=== PATIENT | female | born 1980 | race Caucasian/White ===

== ENCOUNTER 2018-03-11 21:23 | Emergency (ER) | payer OTHER, SELFPAY ==
[2018-03-11 21:47] VITALS: BP 109/77; PULSE 84; RESP 18; TEMP 36.6; O2SAT 96
--- NOTE | 2018-03-11 22:08 | DI.REPORT_ITS ---
SYMPTOM/DIAGNOSIS: RIGHT LATERAL HIP PAIN AFTER DANCING PELVIS AND RIGHT HIP: No fracture or dislocation is seen. The S-I joints, and pubic symphysis appear intact. IMPRESSION: Negative pelvis and right hip.
--- NOTE | 2018-03-11 22:09 | ED.GENADUL ---
Disposition Clinical Impression: Musculoskeletal strain Disposition: HOME Condition: Good Instructions: Ibuprofen (By mouth), Crutch Instructions (ED) Additional Instructions: X-rays are negative and this pain is likely musculoskeletal in nature. It may get a little worse over the weekend and then subsequently should get better over the next few days. I would try ice over the weekend but if that does not seem to help certainly use heat. Ibuprofen as directed. Weight-bear as tolerated and use crutches as necessary. Follow-up with primary care next week. Return to ED for any numbness, weakness, significantly worse pain. Prescriptions: Ibuprofen 600 mg PO TID #15 tablet Referrals: James Mae [Primary Care Provider] - Medical Decision Making - Medical Decision Making Patient presents today with chief complaint of right hip pain after injury while dancing. Did not fall. Did not strike the hip. Is concerned she may have dislocated. However, this is not consistent with exam findings. No shortening or leg length discrepancy. No rotational deformity. Pain is primarily over the greater trochanter laterally hip. No pain is elicited with palpation anteriorly. Range of motion was not assessed secondary to her level of discomfort. Will give the patient ibuprofen, Tylenol, and obtain a UPT and x-rays of the patient's right hip. Discussed this plan with the patient who is in agreement. At the end of my shift, patient as he has not yet gone for imaging. UPT is also still pending, patient was able to stand with assistance to use the restroom. Care was transitioned to Dr. Patricio. Please see his documentation for further information. History of Present Illness - General Chief complaint: Orthopedic Stated complaint: HIP DISLOCATED Time Seen by Provider: 03/11/18 21:54 Source: patient, family, RN notes reviewed Mode of arrival: wheelchair Limitations: no limitations - History of Present Illness Initial comments: Patient is a 37-year-old female presenting today with chief complaint of right hip pain. She reports that prior to arrival she was dancing at a local fair when she felt a sudden pop and had severe discomfort radiating down the lateral aspect of the right hip. Endorses some tingling in the right lower extremity. She reports that she had to be assisted accident for by her mother. He has not been able to bear weight fully on the right lower extremity since the time of initial incident. Denies previous surgery to hip. Denies previous trauma to the hip. States the pain that initiates laterally can radiate around towards the groin anteriorly. Patient is currently being treated for endometriosis and does not have regular menses. Denies abdominal pain. No nausea vomiting. Denies any incontinence. - Related Data Citalopram Hydrobromide [Celexa] 40 mg PO DAILY tab-cap 10/18/12 Tranxene 7.5 mg PO BID 10/18/12 Control Pills 1 tab PO DAILY 11/13/17 Ibuprofen 600 mg PO TID #15 tablet 03/12/18 Allergies Allergy/AdvReac Type Severity Reaction Status Date / Time No Known Allergies Allergy Unverified 12/23/17 04:48 Review of Systems Constitutional: no symptoms reported. denies: chills, fever Respiratory: no symptoms reported Gastrointestinal: as per HPI. 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 Absent: respiratory distress - Cardiovascular Cardiovascular Exam: Present: regular rate, normal rhythm, normal heart sounds - GI/Abdominal GI/Abdominal exam: Present: soft, normal bowel sounds. Absent: distended, tenderness, guarding - Rectal Rectal exam: Present: deferred - Extremities Exam Extremities exam: Present: tenderness, normal capillary refill. Absent: normal inspection (Exam the patient's right lower extremity significant for pain with palpation over the greater trochanter laterally. Pelvis is stable. No pain to palpation of the anterior posterior. No saddle paresthesias. No leg length discrepancy. Normal rotational position. Brisk capillary refill and good distal pulses), full ROM (unable to assess secondary to pain), joint swelling - Back Exam Back exam: Absent: tenderness - Neurological Exam Neurological exam: Present: alert, abnormal gait (patient brought in via wheelchair secondary to pain with ambulation). Absent: motor sensory deficit - Psychiatric Psychiatric exam: Present: normal affect, normal mood - Skin Skin exam: Present: warm, dry, intact, normal color Course Vital Signs - 24 hr 03/11/18 21:47 Temperature 36.6 C Pulse 84 Respiratory 18 Rate Blood Pressure 109/77 Pulse Oximetry 96
--- NOTE | 2018-03-12 00:08 | DI.VRAD_ITS ---
EXAM: XR Right Hip With Pelvis When Performed, 2 or 3 Views CLINICAL HISTORY: 37 years old, female; Pain; Hip pain; Right hip; Patient HX: Right lateral hip pain after dancing TECHNIQUE: Two or three views of the right hip, with pelvis when performed. COMPARISON: CT - ABD PELVIS WITH CONTRAST 2017-12-23 05:55 FINDINGS: Bones/joints: Bone mineralization is age-appropriate. There is no evidence of fracture. No evidence of dislocation. The joint spaces are adequately preserved; no significant degenerative narrowing and no bony erosion seen. Soft tissues: No radiopaque foreign body present. There is no significant soft tissue swelling present. IMPRESSION: No acute osseous abnormality. Dictated and Authenticated by: Gokul Christopher MD. Ordering:ERUM MAYES MD
--- NOTE | 2018-03-12 00:29 | ED.FU ---
Disposition Clinical Impression: Musculoskeletal strain Disposition: HOME Condition: Good Instructions: Ibuprofen (By mouth), Crutch Instructions (ED) Additional Instructions: X-rays are negative and this pain is likely musculoskeletal in nature. It may get a little worse over the weekend and then subsequently should get better over the next few days. I would try ice over the weekend but if that does not seem to help certainly use heat. Ibuprofen as directed. Weight-bear as tolerated and use crutches as necessary. Follow-up with primary care next week. Return to ED for any numbness, weakness, significantly worse pain. Prescriptions: Ibuprofen 600 mg PO TID #15 tablet Referrals: James Mae [Primary Care Provider] - Medical Decision Making - Radiology Data Radiology results: report reviewed, image reviewed - Medical Decision Making X-rays were negative for any bony abnormality. Hip joint was in place. On reevaluation pain is mostly in the right lateral hip and pelvis area. Almost directly over the anterior superior iliac spine on my evaluation. This is likely musculoskeletal in nature. She is still uncomfortable and having difficulty walking and wanted crutches which we provided. We will continue her on nonsteroidals. We will have her follow-up with primary care next week if not doing better. Return to ED if worse. Care Signed Out By:: VICKI Anthony - Vital Signs Recent Vitals - 8H: Vital Signs - 8 hr 03/11/18 21:47 Temperature 97.9 F Pulse 84 Respiratory 18 Rate Blood Pressure 109/77 Pulse Oximetry 96 - Continuation of Care Continuation of Care Plan: Patient signed over to me pending x-ray of her right hip and pelvis. She had presented with complaints of severe right hip pain and difficulty ambulating after dancing at the [employer] this evening. She was originally seen by physician doctor assistant Paul. She did receive Tylenol and Motrin. X-rays were pending.
--- NOTE | 2018-03-12 00:32 | ED.FU_ITS ---
Disposition Clinical Impression: Musculoskeletal strain Disposition: HOME Condition: Good Instructions: Ibuprofen (By mouth), Crutch Instructions (ED) Additional Instructions: X-rays are negative and this pain is likely musculoskeletal in nature. It may get a little worse over the weekend and then subsequently should get better over the next few days. I would try ice over the weekend but if that does not seem to help certainly use heat. Ibuprofen as directed. Weight-bear as tolerated and use crutches as necessary. Follow-up with primary care next week. Return to ED for any numbness, weakness, significantly worse pain. Prescriptions: Ibuprofen 600 mg PO TID #15 tablet Referrals: James Mae [Primary Care Provider] - Medical Decision Making - Radiology Data Radiology results: report reviewed, image reviewed - Medical Decision Making X-rays were negative for any bony abnormality. Hip joint was in place. On reevaluation pain is mostly in the right lateral hip and pelvis area. Almost directly over the anterior superior iliac spine on my evaluation. This is likely musculoskeletal in nature. She is still uncomfortable and having difficulty walking and wanted crutches which we provided. We will continue her on nonsteroidals. We will have her follow-up with primary care next week if not doing better. Return to ED if worse. Care Signed Out By:: VICKI Anthony - Vital Signs Recent Vitals - 8H: Vital Signs - 8 hr 03/11/18 21:47 Temperature 97.9 F Pulse 84 Respiratory 18 Rate Blood Pressure 109/77 Pulse Oximetry 96 - Continuation of Care Continuation of Care Plan: Patient signed over to me pending x-ray of her right hip and pelvis. She had presented with complaints of severe right hip pain and difficulty ambulating after dancing at the [employer] this evening. She was originally seen by physician operations assistant Paul. She did receive Tylenol and Motrin. X-rays were pending.
[2018-03-12 00:40] VITALS: BP 105/75; PULSE 80; RESP 18; O2SAT 96
== END 2018-03-12 00:40 | disposition home or self-care (01) ==
PROVIDERS: Emergency Provider Emergency Medicine; PCP Internal Medicine
DX: S76.011A Strain of muscle, fascia and tendon of right hip, initial encounter (principal); X50.1XXA Overexertion from prolonged static or awkward postures, initial encounter; Y93.41 Activity, dancing
CPT/HCPCS: 81025; 99284; 73502; E0114

== ENCOUNTER 2018-03-20 14:47 | Outpatient (RCR) | payer OTHER, SELFPAY ==
--- NOTE | 2018-03-20 15:00 | IE_ITS ---
Date: March 20, 2018 Referring: James Mae MD M.D. Diagnosis: Hip and groin injury P.T. 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 She was at the [employer] last weekend. She was carrying her niece around the fair on her R hip. Then she put her niece down and started dancing. Half way through the song she felt something pop right over her R hip on the outside. She was instantly sore, had to sit down. She actually had to call her . She was taken to the ED. X-rays were (-) . She was put on crutches for 2 days and became progressively better. Initially the pain was entire R side of the hip girdle, extending through the groin, into the more outside edge of the hip. Now it is located more to the back side area above the R side back pocket. Pain Ratin/10 Prior Level of Function: Unrestricted Current Level of Function: Only work 2 hours each day and walking much less, about 1/4 mile-still painful. Previous Treatment: None Social: Lives in [place] with her and child Comorbidities: Nothing significant worthy of note. Falls in the last year: __X__ No ____Yes - How many? ____ - (if over 2, balance SM needs to be completed) Reported hospitalizations in the last year - __X__ No ____ Yes - Dates of admission/reason: Medications: Celexa, Alprazolam, Imitrex, Chlorazepate Quality of Life: ____ Excellent __X__ Good ____ Fair ____ Poor Standardized Measures: LEFS score: 65% OBJECTIVE: Posture: In standing-patient demonstrates a slight weight bear bias onto the L LE. Observation: (behavior, atrophy, skin color, etc.) Gait: Minimally antalgic with reduction of stance time through the R and impairment in her bernadette and limited amount of hip extension to the R. Palpation: She is tender to palpation to the quadratus lumborum on the R side as well as over the lower portion of the external oblique, the lateral margins of the inguinal ligament also mildly tender and SFMA top tier assessment was completed, dysfunctional non-painful patterns at multisegmental flexion, multisegmental extension, multisegmental rotation, arms down deep squat. ROM: Multisegmental trunk flexion limited to 75% of available motion with mild pain in the posterolateral area of the hip. Multisegmental extension limited to 25% of available motion mostly coming from the lumbar spine, limited hip extension. Hip flexion 120 degrees bilaterally, no pain. Hip IR 35 degrees bilaterally, no pain, hip ER 45 degrees R, mild pain to the quadratus lumborum and L 45 degrees of motion with ER no pain. Hip abduction 45 degrees of motion no pain. Trunk sidebending towards the L mildly painful on the R with 75% of normal motion. On R trunk sidebend WNL and no evidence of pain. Strength: Core strength 4/5, as tested with 90/90 hold position. Patient does receive a little intrinsic feedback and pain towards the R sciatic external oblique and quadratus lumborum when in unweighted position with a mild increase in anterior tilting of the pelvis. Hip flexion 4+/5 bilaterally, no pain, quads 5/5, hamstrings 5/5, dorsiflexion 5 /5, plantar flexion 5/5, glut med 4/5 bilaterally no pain. Neuro: Intact to light touch in sensation through LE dermatomes. Motor control appears intact through associated myotomes. Patient demonstrates appropriate proprioception and kinesthetic awareness. Special Tests: Hip scour, hip grind testing (-), modified Zabrina's testing mildly (+) on R, (-) L. SLR (-) Treatment: Today included the initial evaluation, assessment of functional abilities as well as training in a formal exercise program. The patient demonstrated verbal acknowledgement and technique demonstration. IE: [id number] Direct treatment time: 60 mins Total treatment time: 60 mins ASSESSMENT: Patient is a 37-year-old female with good physical health, referred for PT services with the diagnosis of R side hip and groin pain. Patient presents with clinical signs and symptoms consistent with mechanical strain for the R side intrinsic core and posterolateral hip, as demonstrated by the following impairment level findings: mild deficits with trunk ROM, particularly with multisegmental flexion/extension and sidebending to the contralateral side away from the R, also mild core strength deficits. Impairments are contributing to the following functional limitations: Difficulty working, difficulty walking. Patient is assessed as: __X__ Low 61246 ____ Moderate 91359 ____ High 31012 complexity, based on the following: History: (list): No significant issues other than childbirth See comorbidities and social history. Examination: (list): Weakness through the core and pelvic girdle with mild increase in pain through the external oblique and quadratus lumborum, also ROM deficits through the trunk and multisegmental motion and multidirectional involvement. See above for functional limitations and impairments. Presentation: X Stable . Evolving Unstable Decision-Making: X Low complexity Moderate complexity High complexity % Disability based on LEFS at 65% __X__ Patient requires skilled PT intervention to remediate the above functional limitations to return to: __X__ Premorbid level of function Prognosis: ____ Excellent __X__ Good ____ Fair ____ Poor: As evidence suggest improvement in functional abilities with compliance to a detailed HEP tailored to her diagnosis and following through with PT intervention. STG: __2__ weeks. 1: Patient be independent in a HEP both verbally and with ideal technique demonstration. LTG: __6__ weeks. 1: Patient able to fulfill 8 hours of work during the day without any issue of pain or presentation. 2: Patient able to walk up to 2 miles with normalized gait mechanics, no evidence of pain PLAN: Patient will be seen 2x a week for 6 weeks with tapering visits per patient symptoms and response to treatment. Interventions will mainly consist of therapeutic exercise providing tactile cues , verbal education and advanced movement correctives for establishing muscle symmetry through the core and pelvic girdle. Manual therapy will be utilized to enhance muscle extensibility and improve arthrokinematics. Ultrasound and e-stim will be utilized for pain modulation as necessary. Patient will be monitored for compliance to HEP. Thank you for this referral. Please do not hesitate to contact me with any questions or concerns regarding this patient's plan of care.
--- NOTE | 2018-03-28 11:43 | NT_ITS ---
NON TREATMENT NOTE: 03/28/18 Patient called in to cancel today's appointment.
== END 2018-03-31 23:59 | disposition home or self-care (01) ==
LOC: PT 14:47
PROVIDERS: PCP Internal Medicine; Referring Provider Internal Medicine; Visit Provider Internal Medicine
DX: S76.011D Strain of muscle, fascia and tendon of right hip, subsequent encounter (principal)
CPT/HCPCS: 97161

== ENCOUNTER 2019-10-11 16:01 | Outpatient (REF) | payer OTHER, SELFPAY ==
--- NOTE | 2019-10-11 14:40 | PAPFT_PTH ---
PATIENT: Marcela Callaway LOC: COUNTS INCLUDE [facility] BEDS AT THE [facility] U#:[id number] AGE/SX: 39/F ROOM: RE10/11/[address]: Erin Vogt : 1980 BED: DIS: 10/11/2019 SPEC #: [id number] RECD: 10/12/19 12:59 STATUS: ИРИНА REQ #: [id number] ABHIJEET: 10/11/19 14:[address]: Erin Vogt DEPT: [facility] RECD BY: Ashley Lopes ENTERED: 10/12/19 12:59 SP TYPE: PAPFT OTHR DR: James Mae Tissues: 1 - CX/ENDOCX FOR PAP SMEARS Procedures: PAP THIN PREP/UVM Screening HPV DNA PROBE Comments: [id number] (CHLAMYDIA/GC)
[2019-10-11 20:55] LABS: Bilirubin Negative (Negative); Blood Large (Negative); Clarity Clear (Clear); Glucose Negative (Negative); Ketones Negative (Negative); Leukocyte Esterase Negative (Negative); Nitrite Positive (Negative); Specific Gravity >= 1.030 (1.005-1.025); Urobilinogen 0.2 EU/dL (Up TO 0.2)
[2019-10-11 21:37] LABS: Bacteria Negative HPF (Negative); Crystals Many Calcium Oxalate HPF (Negative); Epithelial Cells Few HPF (Negative); Mucus Negative (Negative)
[2019-10-11 21:38] LABS: C & S Indicated? C&S Done As Ordered; Casts Negative LPF (Negative)
[2019-10-15 14:42] LABS: Chlamydia Result Negative (Negative); GC Result Negative (Negative)
== END 2019-10-11 16:21 ==
LOC: NCHCN 16:01
PROVIDERS: PCP Internal Medicine; Visit Provider Nurse Practitioner Family
DX: N39.0 Urinary tract infection, site not specified (principal); Z11.3 Encounter for screening for infections with a predominantly sexual mode of transmission; Z12.4 Encounter for screening for malignant neoplasm of cervix; Z01.419 Encounter for gynecological examination (general) (routine) without abnormal findings
CPT/HCPCS: 87077; 87491; 87591; 88142; 81003; 81015; 87086; 87186; 87624

== ENCOUNTER 2022-01-16 20:03 | Outpatient (REF) | payer OTHER, SELFPAY ==
[2022-01-18 11:59] LABS: Lyme Ab w Rflx to Lyme Confirm Negative (Negative)
[2022-01-18 15:30] LABS: COVID-19 RT-PCR UVMMC Result Negative (Negative)
[2022-01-19 21:36] LABS: Anaplasma phagocytophilum Negative (Negative); B. miyamotoi PCR Negative (Negative); Babesia divergens/MO-1 Negative (Negative); Babesia duncani Negative (Negative); Babesia microti Negative (Negative); Ehrlichia chaffeensis Negative (Negative); Ehrlichia ewingii/canis Negative (Negative); Ehrlichia muris eauclairensis Negative (Negative)
== END 2022-01-16 20:04 | disposition home or self-care (01) ==
LOC: LBN 20:03
PROVIDERS: PCP Internal Medicine; Visit Provider Physician Assistant Medical
DX: W57.XXXA Bitten or stung by nonvenomous insect and other nonvenomous arthropods, initial encounter (principal); T14.8XXA Other injury of unspecified body region, initial encounter; Z20.822 Contact with and (suspected) exposure to COVID-19; J06.9 Acute upper respiratory infection, unspecified; J02.9 Acute pharyngitis, unspecified
CPT/HCPCS: 87798; U0003; 86618; 87070

== ENCOUNTER 2022-04-09 19:20 | Outpatient (REF) | payer OTHER, SELFPAY ==
[2022-04-11 13:04] LABS: COVID-19 RT-PCR UVMMC Result Negative (Negative)
== END 2022-04-09 19:21 | disposition home or self-care (01) ==
LOC: LBN 19:20
PROVIDERS: PCP Internal Medicine; Visit Provider Physician Assistant Medical
DX: J02.9 Acute pharyngitis, unspecified (principal); Z20.822 Contact with and (suspected) exposure to COVID-19
CPT/HCPCS: U0003; 87070

== ENCOUNTER 2022-09-08 15:05 | Outpatient (REF) | payer OTHER, SELFPAY ==
[2022-09-08 20:57] LABS: HGB 13.8 g/dL (11.2-15.7); MCH 28.1 pg (27.0-33.0); MCHC 32.9 % (32.0-36.0); MCV 86 fL (80-95); MPV 9.6 fL (8.0-11.0); Platelet Count 426 10^3/uL (130-400); RBC 4.91 10^6/uL (3.93-5.22); WBC 11.32 10^3/uL (4.4-10.8)
[2022-09-08 21:38] LABS: ALT 46 U/L (14-59); AST 20 U/L (15-37); Alkaline Phosphatase 173 U/L (46-116); Anion Gap 9.5 mmol/L (3-11); BUN 13 mg/dL (7-18); Bilirubin, Total 0.4 mg/dL (0.2-1.0); CO2 28.5 mmol/L (21.0-32.0); CREATININE 0.8 mg/dL (0.55-1.02); Calcium 9.6 mg/dL (8.5-10.1); Chloride 101 mmol/L (98-107); Estimated GFR 95.46 (mL/min/1.73m2); Glucose 87 mg/dL (74-106); Potassium 4.1 mmol/L (3.5-5.1); Sodium 139 mmol/L (136-145); TSH (W/Ref FT4) 2.06 uIU/mL (0.36-3.74); Total Protein 7.7 g/dL (6.4-8.2); Vitamin B12 415 pg/mL (193-986)
[2022-09-08 22:10] LABS: Iron 92 ug/dL (50-170); Total Iron Binding Capacity 298 ug/dL (250-450); Transferrin Sat 31 % (15-50)
== END 2022-09-08 15:06 | disposition home or self-care (01) ==
LOC: NCHCN 15:05
PROVIDERS: PCP Internal Medicine; Visit Provider Nurse Practitioner Family
DX: F41.0 Panic disorder [episodic paroxysmal anxiety] (principal); Z00.00 Encounter for general adult medical examination without abnormal findings
CPT/HCPCS: 80053; 85027; 82607; 83540; 83550; 84443

== ENCOUNTER 2022-11-02 10:58 | Outpatient (REF) | payer OTHER, SELFPAY ==
[2022-11-02 17:13] LABS: ALT 38 U/L (14-59); AST 26 U/L (15-37); Albumin 3.6 g/dL (3.4-5.0); Alkaline Phosphatase 149 U/L (46-116); Bilirubin, Total 0.4 mg/dL (0.2-1.0); Total Protein 7.5 g/dL (6.4-8.2)
[2022-11-02 17:35] LABS: Bilirubin, Direct 0.1 mg/dL (0.0-0.2)
== END 2022-11-02 10:59 | disposition home or self-care (01) ==
LOC: NCHCN 10:58
PROVIDERS: PCP Internal Medicine; Visit Provider Nurse Practitioner Family
DX: R74.8 Abnormal levels of other serum enzymes (principal)
CPT/HCPCS: 80076

== ENCOUNTER 2023-08-03 19:08 | Outpatient (REF) | payer OTHER, SELFPAY ==
--- OUTSIDE RECORDS SUMMARY | 2023-08-03 19:11 | XMS_ITS | Patient Health Record ---
Author Name Unknown Organization [facility] Address [address], [address] [place] [address] Care Team Providers Care Pre Coder Name Role Phone Tu OROZCO, James Primary Care Provider Moira Miles MD, Sho Unavailable [phone] REASON FOR REFERRAL No Information MEDICATIONS Medication SIG (Take, Route, Frequency, Duration) Notes Start Date End Date Status CeleXA Active Clorazepate Dipotassium Active Ortho-Cyclen (28) 0.25-35 MG-MCG 1 tablet Orally Once a day for 28 days 02/15/2019 Active SOCIAL HISTORY Sex Assigned At : Social History Observation Description Sex Assigned At Unknown PROBLEMS Problem Type ICD Code Onset Dates Problem Status W/U Status Risk SNOMED Code Notes Problem Menstrual migraine, not intractable, without status migrainosus (G43.829) Active confirmed Menstrual migraine (88914011) Problem Other endometriosis (N80.8) Active confirmed Endometriosis (clinical) (827726389) Problem Abnormal uterine and vaginal bleeding, unspecified (N93.9) Active confirmed Abnormal uterin e bleeding (10566920439807) PLAN OF TREATMENT No Information Insurance Providers Payer Name Payer Address Payer Phone Subscriber Number Group Number Insured Name Patient Relationship to Insured Coverage Start Date Coverage End Date [employer] [address] [place] [id number] Marcela Callaway Self - patient is the insured 6 0 MEDICAL (GENERAL) HISTORY Medical History History ICD Code Hx heart palpations Anxiety Migraines Last pap: pt states up to date Surgical History Surgery Date(Month/Year)
[2023-08-03 21:16] LABS: ALT 34 U/L (14-59); AST 18 U/L (15-37); Albumin 3.6 g/dL (3.4-5.0); Alkaline Phosphatase 122 U/L (46-116); Anion Gap 9.3 mmol/L (3-11); BUN 9 mg/dL (7-18); Bilirubin, Total 0.2 mg/dL (0.2-1.0); CO2 28.7 mmol/L (21.0-32.0); CREATININE 0.7 mg/dL (0.55-1.02); Calcium 9.2 mg/dL (8.5-10.1); Chloride 102 mmol/L (98-107); Estimated GFR 112.05 (mL/min/1.73m2); GGT 42 U/L (5-55); Glucose 96 mg/dL (74-106); Potassium 4.2 mmol/L (3.5-5.1); Sodium 140 mmol/L (136-145); Total Protein 7.3 g/dL (6.4-8.2)
[2023-08-03 21:29] LABS: Iron 54 ug/dL (50-170); Total Iron Binding Capacity 288 ug/dL (250-450); Transferrin Sat 19 % (15-50)
[2023-08-03 21:42] LABS: Ferritin 43 ng/mL (8-252)
[2023-08-04 09:17] LABS: HGB 13.2 g/dL (11.2-15.7); MCH 28.4 pg (27.0-33.0); MCV 86 fL (80-95); MPV 9.3 fL (8.0-11.0); Platelet Count 365 10^3/uL (130-400); RBC 4.65 10^6/uL (3.93-5.22); RDW 13.8 % (11.7-14.6); RDW-SD 43.5 fL; WBC 9.49 10^3/uL (4.4-10.8)
== END 2023-08-03 19:09 | disposition home or self-care (01) ==
LOC: NCHCN 19:08
PROVIDERS: PCP Internal Medicine; Visit Provider Nurse Practitioner Family
DX: Z00.00 Encounter for general adult medical examination without abnormal findings (principal)
CPT/HCPCS: 80053; 85027; 82728; 82977; 83540; 83550; 84443

== ENCOUNTER 2024-11-14 16:42 | Outpatient (REF) | payer OTHER, SELFPAY ==
--- NOTE | 2024-11-14 14:51 | PAPFT_PTH ---
PATIENT: Marcela Callaway LOC: [facility] U#:[id number] AGE/SX: 44/F ROOM: RE11/14/[address]: Erin Vogt : 1980 BED: DIS: 11/14/2024 SPEC #: [id number] RECD: 11/15/24 13:02 STATUS: ИРИНА REKameron #: [id number] ABHIJEET: 11/14/24 14:[address]: Erin Vogt DEPT: [facility] RECD BY: Ashley Lopes ENTERED: 11/15/24 13:02 SP TYPE: PAPFT OTHR DR: James Mae Tissues: 1 - CX/ENDOCX FOR PAP SMEARS Procedures: PAP THIN PREP/UVM Screening HPV DNA PROBE Comments: [id number] (HPV 16 & 18/45) (CHLAMYDIA/GC)
[2024-11-14 21:22] LABS: HCT 39.2 % (36.0-46.0); HGB 13.1 g/dL (11.2-15.7); MCHC 33.4 % (32.0-36.0); MCV 87 fL (80-95); MPV 9.7 fL (8.0-11.0); Platelet Count 373 10^3/uL (130-400); RBC 4.51 10^6/uL (3.93-5.22); RDW 14.1 % (11.7-14.6); RDW-SD 44.5 fL; WBC 9.94 10^3/uL (4.4-10.8)
[2024-11-14 21:48] LABS: ALT 32 U/L (14-59); AST 17 U/L (15-37); Albumin 3.7 g/dL (3.4-5.0); Alkaline Phosphatase 132 U/L (46-116); Anion Gap 10.2 mmol/L (3-11); BUN 14 mg/dL (7-18); Bilirubin, Total 0.2 mg/dL (0.2-1.0); CO2 27.8 mmol/L (21.0-32.0); CREATININE 0.9 mg/dL (0.55-1.02); Calcium 9.7 mg/dL (8.5-10.1); Calculated LDL 90 mg/dL (<100); Chloride 105 mmol/L (98-107); Cholesterol 214 mg/dL (<200); Estimated GFR 81.86 (mL/min/1.73m2); Glucose 99 mg/dL (74-106); HDL Cholesterol 55 mg/dL (>or=50); Potassium 4.3 mmol/L (3.5-5.1); Sodium 143 mmol/L (136-145); Total Protein 7.7 g/dL (6.4-8.2); Triglyceride 349 mg/dL (<150)
[2024-11-14 21:58] LABS: Hemoglobin A1C 5.7 % (<5.7)
[2024-11-16 11:07] LABS: Chlamydia Result Negative (Negative); GC Result Negative (Negative)
== END 2024-11-14 16:43 | disposition home or self-care (01) ==
LOC: NCHCN 16:42
PROVIDERS: PCP Internal Medicine; Visit Provider Nurse Practitioner Family
DX: Z12.4 Encounter for screening for malignant neoplasm of cervix (principal); Z00.00 Encounter for general adult medical examination without abnormal findings; E66.9 Obesity, unspecified
CPT/HCPCS: 80053; 80061; 85027; 87491; 87591; 88142; 83036; 87624

== ENCOUNTER 2024-12-12 01:57 | Outpatient (CLI) | payer OTHER, SELFPAY ==
--- NOTE | 2024-12-12 | DI.MAMMO_ITS ---
Exam(s) MAMMO SCREENING EXAM: MAMMO SCREENING CLINICAL HISTORY: SCREENING, Z12.31,BASELINE TECHNIQUE: Bilateral full field digital CC and MLO mammographic images were obtained with 3D tomosyn thesis and utilizing computer aided detection (CAD). COMPARISON: This is a baseline examination. FINDINGS: Masses/Architectural Distortion: There is an well-circumscribed ovoid density in the lower inner quad rant of the right breast. This may represent a skin lesion versus an intraparenchymal lesion. Spot compression views are requested for further evaluation. Microcalcifications: No suspicious pleomorphic-type are seen. Skin Thickening/Nipple Retraction: None. IMPRESSION: 1. Well-circumscribed ovoid density in the lower inner quadrant of the right breast. 2. Additional views are requested. Ultrasound may be indicated at that time. BI-RADS Category 0 - Incomplete: Need additional imaging evaluation Breast Density - Category C - The breast are heterogeneously dense, which may obscure small masses. Breast density category C or D implies that the patient has dense breast tissue. Dense breast tissue is very common and is not abnormal but dense breast tissue can make it harder to find cancer on a ma mmogram. Also, dense breast tissue may increase their breast cancer risk. This information about the result of the mammogram report was provided to the patient to raise their awareness. Use this report when you speak with the patient about their risks for breast cancer, which includes their family hist ory. At that time, you may recommend for more screening tests (Ultrasound or MRI) as they might be us eful based on their risk. A negative radiographic report should not delay biopsy if a dominant or clinically suspicious mass is present. Up to ten percent of cancers are not identified on mammography. A negative report may reinforce clinical impression. Adenosis and dense breasts may obscure an underlying neoplasm. False positive reports average 6 to 10%. Patient will receive a letter notifying them of these results.
== END 2024-12-12 02:17 ==
LOC: DI 01:57
PROVIDERS: PCP Internal Medicine; Visit Provider Nurse Practitioner Family
DX: Z12.31 Encounter for screening mammogram for malignant neoplasm of breast (principal); R92.333 Mammographic heterogeneous density, bilateral breasts
CPT/HCPCS: 77063; 77067

== ENCOUNTER 2024-12-21 00:32 | Outpatient (CLI) | payer OTHER, SELFPAY ==
--- NOTE | 2024-12-21 10:00 | DI.US_ITS ---
Exam(s) MG MAMMO SCREEN CALL BACK UNI US BREAST RT LIMITED EXAM: MG MAMMO SCREEN CALL BACK UNI CLINICAL HISTORY: Well-circumscribed ovoid density, lower inner quadrant, rt breast. TECHNIQUE: Craniocaudal and mediolateral oblique spot compression digital Mammography views of the r ightbreast with Tomosynthesis and right breast ultrasound. COMPARISON: MG MG MAMMO SCREENING from 12/12/2024 US US BREAST RT LIMITED from 12/21/2024 FINDINGS: Mammography/Tomosynthesis: Masses: Persistent circumscribed 11 millimeter ovoid nodule in the lower inner quadrant, in the super ficial tissue. Architectural Distortion: None seen. Microcalcifictions: No suspicious pleomorphic-type are seen. Skin Thickening/Nipple Retraction: None. Right breast US: Echotexture: Normal appearance of the glandular tissue. Shadowing: No suspicious foci. Cyst: 6 millimeter cyst 3 o'clock position 2 cm from the nipple. 4 millimeter cyst directly adjacent . Solid lesions: None seen. Ductal dilation: None. IMPRESSION: 1. No evidence of malignancy is noted. 2. Unless there is more urgent need, follow-up screening mammography is recommended, as per [employer] guidelines. 3. The findings were discussed with the patient on the date of the examination. BI-RADS Category 2 - Benign Findings Breast Density - Category C - The breast are heterogeneously dense, which may obscure small masses. Breast density Category C or D implies that the patient has dense breast tissue. Dense breast tissue can make it harder to find cancer on a mammogram. Dense breast tissue is also associated with an incr eased risk of breast cancer. This information about the result of the mammogram report was provided to the patient to raise their awareness. Use this report when you speak with the patient about their risks for breast cancer, which includes their family history. At that time, you may recommend additional screening tests (Ultrasoun d or MRI) as these tests may add significant information. A negative radiographic report should not delay biopsy if a dominant or clinically suspicious mass is present. Up to ten percent of cancers are not identified on mammography. A negative report may reinforce clinical impression. Adenosis and dense breasts may obscure an underlying neoplasm. False positive reports average 6 to 10%. Patient will receive a letter notifying them of these results.
== END 2024-12-21 00:52 ==
LOC: DI 00:32
PROVIDERS: PCP Nurse Practitioner Family; Visit Provider Nurse Practitioner Family
DX: Z12.31 Encounter for screening mammogram for malignant neoplasm of breast (principal); R92.333 Mammographic heterogeneous density, bilateral breasts; D24.1 Benign neoplasm of right breast
CPT/HCPCS: 76642; 77063; 77067